=== PATIENT | male | born 2000 ===

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

== ENCOUNTER 2022-08-10 12:20 | Emergency (ER) | payer SELFPAY ==
[~2022-08-10] VITALS: Ht 177.8 cm; Wt 83.9 kg
--- NOTE | 2022-08-10 13:43 | ED Abdominal Pain ---
General Chief Complaint: Abdominal/GI Problems Stated Complaint: ABD PAIN Nursing Triage Note: PT AMB TO TRIAGE W C/O GENERALIZED ABD PAIN AND SEVERAL EPISODES OF DIARRHEA SX 08/08/22. PT REPORTS SYMPTOMS BEGAN AFTER HE ATE A PIZZA, PT A&OX4. Source of Information: Patient Exam Limitations: No Limitations History of Present Illness Date Seen by Provider: Aug 10, 2022 Time Seen by Provider: 13:42 Initial Comments To ER with epigastric abdominal pain since 08/08/2022. No history of this. Pain has been constant since it started. No fevers or chills. Pepto-Bismol helps but there are no other modifying factors. Timing/Duration: 2-3 Days Severity/Quality: Moderate Location: Epigastric Radiation: No Radiation Activities at Onset: None Allergies and Home Medications Allergies Coded Allergies: No Known Drug Allergies (Unverified , 07/08/19) Patient Home Medication List Home Medication List Reviewed: Yes Pantoprazole Sodium (Pantoprazole Sodium) 40 Mg Tablet.dr, 40 MG PO DAILY Prescribed by: YUNIOR GUNN on 08/10/22 152 Sucralfate (Sucralfate) 1 Gram Tablet, 1 GM PO ACHS Prescribed by: YUNIOR GUNN on 08/10/22 152 Review of Systems Review of Systems Constitutional: see HPI EENTM: No Symptoms Reported Respiratory: No Symptoms Reported Cardiovascular: No Symptoms Reported Gastrointestinal: See HPI, Abdominal Pain Genitourinary: No Symptoms Reported Musculoskeletal: no symptoms reported Skin: no symptoms reported Psychiatric/Neurological: No Symptoms Reported Endocrine: No Symptoms Reported Hematologic/Lymphatic: No Symptoms Reported Past Jajrafz-Datdnr-Wceqgk Hx Patient Social History Tobacco Use?: No Use of E-Cig and/or Vaping dev: No Substance use?: No Alcohol Use?: Yes Immunizations Up To Date Influenza Vaccine Up-to-Date: No; Not Current First/Initial COVID19 Vaccinat: NONE Second COVID19 Vaccination Ankur: NONE Third COVID19 Vaccination Date: NONE COVID19 Vaccine Charging Plug Placer: NONE Past Medical History Surgeries: No Respiratory: No Cardiac: No Neurological: No Genitourinary: No Gastrointestinal: No Musculoskeletal: No Endocrine: No HEENT: No Cancer: No Psychosocial: No Integumentary: No Blood Disorders: No Physical Exam Vital Signs Vital Signs - First Documented 08/10/22 12:26 Temp 36.8 Pulse 60 Resp 20 B/P (MAP) 144/93 (110) Pulse Ox 100 O2 Delivery Room Air Capillary Refill : Less Than 3 Seconds Height/Weight/BMI Height: 5'10.00" Weight: 160lbs. oz. 72.562657tb; 26.00 BMI Method: General Appearance: WD/WN, no apparent distress HEENT: PERRL/EOMI, normal ENT inspection Neck: non-tender, full range of motion Respiratory: no respiratory distress, no accessory muscle use Cardiovascular: regular rate, rhythm, no murmur Gastrointestinal: normal bowel sounds, soft Extremities: normal range of motion Neurologic/Psychiatric: alert, normal mood/affect, oriented x 3 Skin: normal color, warm/dry Progress/Results/Core Measures Results/Orders Lab Results Laboratory Tests Test 08/10/22 14:03 Range/Units White Blood Count 9.6 4.3-11.0 10^3/uL Red Blood Count 4.92 4.30-5.52 10^6/uL Hemoglobin 14.9 13.3-17.7 g/dL Hematocrit 44 40-54 % Mean Corpuscular Volume 89 80-99 fL Mean Corpuscular Hemoglobin 30 25-34 pg Mean Corpuscular Hemoglobin Concent 34 32-36 g/dL Red Cell Distribution Width 12.0 10.0-14.5 % Platelet Count 209 130-400 10^3/uL Mean Platelet Volume 10.5 9.0-12.2 fL Immature Granulocyte % (Auto) 0 % Neutrophils (%) (Auto) 51 42-75 % Lymphocytes (%) (Auto) 25 12-44 % Monocytes (%) (Auto) 6 0-12 % Eosinophils (%) (Auto) 18 H 0-10 % Basophils (%) (Auto) 1 0-10 % Neutrophils # (Auto) 4.9 1.8-7.8 10^3/uL Lymphocytes # (Auto) 2.4 1.0-4.0 10^3/uL Monocytes # (Auto) 0.6 0.0-1.0 10^3/uL Eosinophils # (Auto) 1.7 H 0.0-0.3 10^3/uL Basophils # (Auto) 0.1 0.0-0.1 10^3/uL Immature Granulocyte # (Auto) 0.0 0.0-0.1 10^3/uL Neutrophils % (Manual) 58 % Lymphocytes % (Manual) 22 % Monocytes % (Manual) 3 % Eosinophils % (Manual) 16 % Basophils % (Manual) 0 % Band Neutrophils 1 % Blood Morphology Comment NORMAL Sodium Level 140 135-145 MMOL/L Potassium Level 4.4 3.6-5.0 MMOL/L Chloride Level 102 98-107 MMOL/L Carbon Dioxide Level 25 21-32 MMOL/L Anion Gap 13 5-14 MMOL/L Blood Urea Nitrogen 11 7-18 MG/DL Creatinine 1.06 0.60-1.30 MG/DL Estimat Glomerular Filtration Rate 102 BUN/Creatinine Ratio 10 Glucose Level 91 70-105 MG/DL Calcium Level 9.5 8.5-10.1 MG/DL Corrected Calcium 9.3 8.5-10.1 MG/DL Total Bilirubin 0.3 0.1-1.0 MG/DL Aspartate Amino Transf (AST/SGOT) 18 5-34 U/L Alanine Aminotransferase (ALT/SGPT) 17 0-55 U/L Alkaline Phosphatase 104 40-136 U/L Total Protein 6.8 6.4-8.2 GM/DL Albumin 4.2 3.2-4.5 GM/DL Lipase 26 8-78 U/L My Orders Orders - YUNIOR GUNN APRN Cbc With Automated Diff (08/10/22 13:39) Comprehensive Metabolic Panel (08/10/22 13:39) Lipase (08/10/22 13:39) Antacid Suspension (Mylanta Suspension (08/10/22 13:45) Lidocaine 2% Viscous 15 Ml (Xylocaine Vi (08/10/22 13:45) Manual Differential (08/10/22 14:03) Us Gallbladder [id number] (08/10/22 14:42) Medications Given in ED Current Medications Medications Dose Ordered Sig/Ruben Route Start Time Stop Time Status Last Admin Dose Admin Al Hydrox/Mg Hydrox/Simethicone 30 ml ONCE ONCE PO 08/10/22 13:45 08/10/22 13:46 DC 08/10/22 13:53 30 ML Lidocaine HCl 10 ml ONCE ONCE PO 08/10/22 13:45 08/10/22 13:46 DC 08/10/22 13:53 10 ML Vital Signs/I&O 08/10/22 08/10/22 12:26 15:48 Temp 36.8 Pulse 60 74 Resp 20 20 B/P (MAP) 144/93 (110) 134/89 Pulse Ox 100 100 O2 Delivery Room Air Room Air Blood Pressure Mean: 110 Departure Communication (Admissions) Did have some improvement with GI cocktail. We will get an ultrasound of the gallbladder. Impression Primary Impression: Gastritis and duodenitis Disposition: HOME, SELF-CARE Condition: Stable Departure-Patient Inst. Decision time for Depature: 14:41 Referrals: NO,LOCAL PHYSICIAN (PCP/Family) Primary Care Physician Patient Instructions: Gastritis ED Scripts Pantoprazole Sodium (Pantoprazole Sodium) 40 Mg Tablet.dr 40 MG PO DAILY, #14 TAB Prov: YUNIOR GUNN APRN 08/10/22 Sucralfate (Sucralfate) 1 Gram Tablet 1 GM PO ACHS, #40 TAB 1 Refill Chew tablet to a slurry and then swallow Prov: YUNIOR GUNN APRN 08/10/22 YUNIOR GUNN APRN Aug 10, 2022 13:43
[2022-08-10] MEDS ORDERED: ANTACID SUSP 30 ML UDC (MYLANTA) PO ONE (13:45)
[2022-08-10] MEDS ORDERED: LIDOCAINE 2% VISCOUS 15 ML UDC PO ONE (13:45)
[2022-08-10 14:10] LABS: BASOPHILS # (AUTO) 0.1 10^3/uL (0.0-0.1); BASOPHILS % (AUTO) 1 % (0-10); EOSINOPHILS # (AUTO) 1.7 10^3/uL (0.0-0.3); EOSINOPHILS % (AUTO) 18 % (0-10); HEMATOCRIT 44 % (40-54); HEMOGLOBIN 14.9 g/dL (13.3-17.7); LYMPHOCYTES # (AUTO) 2.4 10^3/uL (1.0-4.0); LYMPHOCYTES % (AUTO) 25 % (12-44); MEAN CORPUSCULAR HEMOGLOBIN 30 pg (25-34); MEAN CORPUSCULAR HGB CONC 34 g/dL (32-36); MEAN CORPUSCULAR VOLUME 89 fL (80-99); MEAN PLATELET VOLUME 10.5 fL (9.0-12.2); MONOCYTES # (AUTO) 0.6 10^3/uL (0.0-1.0); MONOCYTES % (AUTO) 6 % (0-12); NEUTROPHILS # (AUTO) 4.9 10^3/uL (1.8-7.8); NEUTROPHILS % (AUTO) 51 % (42-75); PLATELET COUNT 209 10^3/uL (130-400); WHITE BLOOD COUNT 9.6 10^3/uL (4.3-11.0)
[2022-08-10 14:24] LABS: ALBUMIN 4.2 GM/DL (3.2-4.5)
[2022-08-10 14:25] LABS: POTASSIUM 4.4 MMOL/L (3.6-5.0)
[2022-08-10 14:26] LABS: CALCIUM 9.5 MG/DL (8.5-10.1)
[2022-08-10 14:27] LABS: TOTAL PROTEIN 6.8 GM/DL (6.4-8.2)
[2022-08-10 14:29] LABS: BILIRUBIN,TOTAL 0.3 MG/DL (0.1-1.0)
[2022-08-10 14:31] LABS: CREATININE SERUM 1.06 MG/DL (0.60-1.30)
[2022-08-10 14:33] LABS: BAND NEUTROPHILS 1 %; BASOPHILS % (MANUAL) 0 %; EOSINOPHILS % (MANUAL) 16 %; LYMPHOCYTES % (MANUAL) 22 %; MONOCYTES % (MANUAL) 3 %; NEUTROPHILS % (MANUAL) 58 %; RBC MORPH NORMAL
[2022-08-10] MEDS ORDERED: PANT40TA52 PO (15:29)
[2022-08-10] MEDS ORDERED: SUCR1TAB PO (15:29)
[2022-08-10 15:48] VITALS: BP 134/89
--- NOTE | 2022-08-10 15:55 | Diagnostic Imaging Report ---
EXAMINATION: US Abdomen limited. TECHNIQUE: Multiple real-time grayscale images were obtained over the right upper quadrant in various projections. HISTORY: epigastric pain COMPARISON: None available. FINDINGS: Pancreas: The visualized portions of the pancreas are normal. Liver: The liver is normal in echogenicity and contour. No focal lesions are seen. The portal vein is patent with hepatopetal flow. Gallbladder and biliary tree: Questionable non-shadowing nodule seen within the gallbladder measuring up to 0.7 cm. No other shadowing stones or sonographic Vogt sign. There is no biliary ductal dilation. The common duct measures 0.2 cm. Right kidney: The right kidney is normal without hydronephrosis. Aorta and IVC: The visualized aorta and inferior vena cava are normal. Fluid: No ascites is seen. IMPRESSION: 1. Questionable filling defect along the gallbladder wall which could represent small polyp, tumefactive sludge, or calculus. Consider ultrasound follow-up in one year. 2. Otherwise unremarkable abdominal ultrasound. Dictated by: Dictated on workstation # [id number]
== END 2022-08-10 15:48 | disposition home or self-care (01) ==
LOC: EDUNIT# 12:20 → ER 12:22
DX: K29.70 Gastritis, unspecified, without bleeding (principal); K29.80 Duodenitis without bleeding; Z28.310 Unvaccinated for COVID-19
CPT/HCPCS: 36415; 76705; 80053; 83690; 85007; 85027